=== PATIENT | male | born 1985 | race Caucasian/White ===

== ENCOUNTER 2022-04-03 17:02 | Emergency (ER) | payer SELFPAY ==
[~2022-04-03 17:02] MED LIST: Iopamidol 300 61% 100 ML VIAL FS ONE
[2022-04-03 17:48] LABS: #Eosinphils 0.1 10x3/uL (0.0-0.5); #Monocytes 0.6 10x3/uL (0.0-1.1); %Basophils 0.5 % (0.0-2.0); %Eosinophils 0.6 % (0.0-6.0); %Lymphocytes 4.1 % (18.0-47.0); %Monocytes 7.5 % (0.0-10.0); %Neutrophils 86.9 % (40.0-75.0); Hemoglobin 13.5 g/dL (13.5-17.5); Mean Corpuscular HGB CONC 34.3 g/dL (32.0-36.0); Mean Corpuscular Hemoglobin 30.2 pg (27.0-33.0); Mean Corpuscular Volume 88.1 fl (81.2-95.1); Mean Platelet Volume 9.6 fl (7.4-10.4); Platelet Count 170 10x3/uL (150-450); RBC Distribution Width 13.5 % (11.5-14.5); Red Blood Cell (RBC) Count 4.47 10x6/uL (4.32-5.72)
[2022-04-03 18:05] LABS: ALT (SGPT) 20 U/L (8-55); AST (SGOT) 21 U/L (5-34); Albumin 4.6 g/dL (3.5-5.0); Alkaline Phosphatase 52 U/L (40-110); Anion Gap 15 mmol/L (10-20); BUN (Urea Nitrogen) 15 mg/dL (8.9-20.6); Bilirubin, Total 0.4 mg/dL (0.2-1.2); Calc. Creatinine Clearance 0 mL/min (70-130); Calcium 9.4 mg/dL (7.8-10.44); Carbon Dioxide 25 mmol/L (22-29); Chloride 104 mmol/L (98-107); Estimated GFR 73; Globulin 2.9 g/dL (2.4-3.5); Glucose 97 mg/dL (70-105); Lipase 24 U/L (8-78); Potassium 4.3 mmol/L (3.5-5.1); Protein, Total 7.5 g/dL (6.0-8.3); Sodium 140 mmol/L (136-145)
[2022-04-03] MEDS ORDERED: Ondansetron PF 4 MG/2 ML Vial ONE ×2 (18:06→19:42)
[2022-04-03] MEDS ORDERED: Morphine 4 MG/ML VIAL ONE ×2 (18:07→19:30)
[2022-04-03 18:52] LABS: SARS-CoV-2 NAA Rapid Test DETECTED (NotDetected)
[2022-04-03] MEDS ORDERED: Piperacillin/Tazobactam 4.5 GM VIAL ONE (19:42)
== END 2022-04-03 20:20 | disposition home or self-care (01) ==
LOC: CSHERS 17:02
DX: U07.1 COVID-19 (principal); K37 Unspecified appendicitis; F17.210 Nicotine dependence, cigarettes, uncomplicated
CPT/HCPCS: 36415; 74177; 80053; 83605; 83690; 85025; 96365; 96375; 96376; J2270; J2405; J2543; Q9967